=== PATIENT | male | born 1940 | race Caucasian/White ===

== ENCOUNTER → 2018-04-02 | Outpatient (CLI) | payer MEDICARE ==
[2018-04-02 09:00] LABS: URINE WBC 0 /hpf (0-3)
[2018-04-02 09:25] LABS: PH-URINE 5.5 (5.0 - 8.0); URINE APPEARANCE HAZY; URINE COLOR DK YELLOW; URINE PROTEIN(semi-quant) TRACE mg/dL (NEGATIVE)
[2018-04-02 09:26] LABS: URINE BILIRUBIN NEGATIVE (NEGATIVE); URINE BLOOD NEGATIVE (NEGATIVE); URINE GLUCOSE NEGATIVE (NEGATIVE); URINE KETONE NEGATIVE (NEGATIVE); URINE LEUKOCYTE ESTERASE NEGATIVE (NEGATIVE); URINE MUCUS PRESENT (NOT PRESENT); URINE NITRATE NEGATIVE (NEGATIVE); URINE UROBILINOGEN NORMAL (NORMAL)
[2018-04-02 09:38] LABS: ALBUMIN 4.1 g/dL (3.5-5.0); CALCIUM 9.2 mg/dL (8.4-10.2); TOTAL BILIRUBIN 1.5 mg/dL (0.2-1.3)
[2018-04-02 10:05] LABS: POTASSIUM 4.7 mmol/L (3.6-5.0)
== END ==
LOC: LAB 08:48
PROVIDERS: Family Medicine
DX: Z23 Encounter for immunization (principal); R35.1 Nocturia; R35.8 Other polyuria

== ENCOUNTER → 2018-04-30 | Outpatient (CLI) | payer MEDICARE ==
[2018-04-30 11:37] LABS: DIRECT BILIRUBIN 0.5 mg/dL (0.0-0.4); TOTAL BILIRUBIN 1.1 mg/dL (0.2-1.3)
== END ==
LOC: RAD 11:08
PROVIDERS: Family Medicine
DX: M19.072 Primary osteoarthritis, left ankle and foot (principal); M19.071 Primary osteoarthritis, right ankle and foot; M20.12 Hallux valgus (acquired), left foot; M21.611 Bunion of right foot; N40.1 Benign prostatic hyperplasia with lower urinary tract symptoms; M79.672 Pain in left foot; M79.671 Pain in right foot

== ENCOUNTER → 2019-06-01 | Outpatient (CLI) | payer MEDICARE ==
[2019-06-01 09:09] LABS: ALBUMIN 3.9 g/dL (3.4-4.8); POTASSIUM 4.4 mmol/L (3.5-5.1)
[2019-06-01 09:10] LABS: CALCIUM 9.4 mg/dL (8.3-10.5)
[2019-06-01 09:13] LABS: TOTAL BILIRUBIN 0.8 mg/dL (0.2-1.2)
== END ==
LOC: LAB 08:28
PROVIDERS: Family Medicine
DX: Z00.00 Encounter for general adult medical examination without abnormal findings (principal); Z13.6 Encounter for screening for cardiovascular disorders; Z23 Encounter for immunization; Z13.1 Encounter for screening for diabetes mellitus; Z12.11 Encounter for screening for malignant neoplasm of colon; M19.071 Primary osteoarthritis, right ankle and foot; N40.1 Benign prostatic hyperplasia with lower urinary tract symptoms; R35.1 Nocturia

== ENCOUNTER → 2019-09-04 | Outpatient (CLI) | payer MEDICARE | LOC: RAD 11:11 | DX: R06.2 Wheezing (principal) ==

== ENCOUNTER → 2023-03-13 | Outpatient (CLI) | payer MEDICARE | LOC: VAS 16:07 → RAD 16:15 | DX: I45.0 Right fascicular block (principal) ==

== ENCOUNTER → 2023-07-16 | Outpatient (CLI) | payer MEDICARE | LOC: LAB 11:18 | DX: R73.03 Prediabetes (principal) ==